=== PATIENT | male | born 1950 | race Caucasian/White ===

== ENCOUNTER 2017-11-04 12:24 | Outpatient (CLI) | END 2017-11-04 15:54 | disposition home or self-care (01) ==

== ENCOUNTER 2017-12-02 12:09 | Outpatient (CLI) | END 2017-12-02 15:43 | disposition home or self-care (01) ==

== ENCOUNTER 2017-12-15 05:40 | Observation (INO) | END 2017-12-17 13:30 | disposition home or self-care (01) ==

== ENCOUNTER 2017-12-23 12:57 | Outpatient (CLI) | END 2017-12-23 15:55 | disposition home or self-care (01) ==